=== PATIENT | female | born 1985 | race Caucasian/White ===

== ENCOUNTER 2019-01-29 13:04 | Emergency (ER) | payer OTHER ==
[~2019-01-29] VITALS: Ht 170.2 cm; Wt 80.7 kg
[2019-01-29 13:04] VITALS: BP 146/91
--- NOTE | 2019-01-29 13:04 | NUR ---
Patient BIBA BLS, transferred to bed 5. RN evaluating patient at bedside.
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
[2019-01-29] MEDS ORDERED: LORazepam 1 MG TAB PO ONE (13:55)
--- NOTE | 2019-01-29 14:16 | NUR ---
PT BEING TAKEN TO CT VIA [facility]
--- NOTE | 2019-01-29 14:16 | NUR ---
Patient taken to CT scan via gurney by [facility].
--- NOTE | 2019-01-29 14:28 | NUR ---
Patient returned from CT scan. RN re-evaluating patient at bedside.
--- NOTE | 2019-01-29 16:25 | NUR ---
DR. OSMAN SPEAKING WITH PATIENT.
[2019-01-29 16:32] VITALS: BP 140/84
== END 2019-01-29 16:32 | disposition home or self-care (01) ==
LOC: MED 13:04
DX: S16.1XXA Strain of muscle, fascia and tendon at neck level, initial encounter (principal); S39.012A Strain of muscle, fascia and tendon of lower back, initial encounter; V43.54XA Car driver injured in collision with van in traffic accident, initial encounter; Y93.89 Activity, other specified; Y92.410 Unspecified street and highway as the place of occurrence of the external cause; Y99.8 Other external cause status
CPT/HCPCS: 71250; 72125; 81025; 99284